=== PATIENT | female | born 1960 | race Caucasian/White ===

== ENCOUNTER 2020-02-12 02:11 | Inpatient (IN) | payer OTHER ==
[2020-02-12] VITALS (7 sets, daily range): BP systolic 156–182; BP diastolic 93–102
[~2020-02-12] VITALS: Ht 157.5 cm; Wt 89.3 kg
--- NOTE | 2020-02-12 02:48 | NUR ---
LEVEL II CODE STROKE ACTIVATED. CT NOTIFIED
--- NOTE | 2020-02-12 03:13 | NUR ---
DR. HENRY ON PHONE WITH PATIENT'S DAUGHTER OBTAINING MORE MEDICAL INFORMATION AND LAST KNOWN WELL.
[2020-02-12 03:29] LABS: ABSOLUTE NEUTROPHILS 4.1 thou/uL (1.4-8.2); BASOPHILS 0.9 % (0.0-2.0); EOSINOPHILS 1.1 % (0.0-3.0); HEMATOCRIT 43.3 % (37.0-47.0); HEMOGLOBIN 14.3 gm/dL (12.0-15.0); LYMPHOCYTES 38.4 % (24.0-44.0); MCH 28.4 pg (26.0-34.0); MCHC 33.1 g/dL (28.0-37.0); PLATELET COUNT 242 thou/uL (150-400); POLYS 53.6 % (36.0-66.0); RBC 5.04 mil/uL (4.20-5.00); RDW 14.2 % (10.5-14.5); WBC 7.7 thou/uL (4.0-11.0)
[2020-02-12 03:33] LABS: ANION GAP 17 mmol/L (7-16); BUN 13 mg/dL (7-18); CHLORIDE 99 mmol/L (98-107); CO2 23 mmol/L (21-32); CREATININE 1.1 mg/dL (0.6-1.0); GLUCOSE 414 mg/dL (74-106); SODIUM 139 mmol/L (136-145)
[2020-02-12 03:35] LABS: POTASSIUM 4.6 mmol/L (3.5-5.1)
[2020-02-12 03:42] LABS: ALBUMIN 4.5 g/dL (3.4-5.0); SGOT 34 U/L (15-37); SGPT 42 U/L (14-59); TOTAL BILIRUBIN 0.8 mg/dL (0.2-1.0); TOTAL PROTEIN 8.1 g/dL (6.4-8.2); TROPONIN-I <0.06 ng/mL (<0.06)
[2020-02-12 03:47] LABS: APTT 17.5 Seconds (24.5-32.8); PROTIME 10.2 Seconds (9.3-11.4)
[2020-02-12 03:54] LABS: LARGE PLATELETS OCCASIONAL
[2020-02-12 03:56] LABS: PLATELET ESTIMATE NORMAL
--- NOTE | 2020-02-12 04:28 | NUR ---
JUST ARRIVED BACK FROM CT. PT HAD A LOT OF AGITATION, VERY DIFICULT TO COMPLETE SCAN. MEDS GIVEN. VS MONITORED AND REMAINED STABLE. PLACED PT ON NC ON RETURN.
[2020-02-12 04:34] LABS: BE(vivo) -3.3 mmol/L (-2 to +3); HCO3 22.2 mmol/L (22.0-26.0); PCO2 VENOUS 41.6 mmHg (41.0-51.0); PO2 VENOUS 59.4 mmHg (35.0-45.0)
[2020-02-12 04:51] LABS: MAGNESIUM 2.2 mg/dL (1.8-2.4)
[2020-02-12 05:09] LABS: URINE BILIRUBIN NEGATIVE (Negative); URINE BLOOD TRACE (Negative); URINE CLARITY CLEAR; URINE COLOR YELLOW; URINE GLUCOSE-RANDOM* 3+ (Negative); URINE KETONES 3+ (Negative); URINE LEUKOCYTES-REFLEX NEGATIVE (Negative); URINE NITRITE-REFLEX NEGATIVE (Negative); URINE PROTEIN (DIPSTICK) NEGATIVE (Negative); URINE UROBILINOGEN 0.2 E.U./dl (0.2-1.0)
--- NOTE | 2020-02-12 08:58 | EKG ---
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 : 1960 Requested By: Herb Rivas Order Number: [id number] MD: Jorge Samuels Measurements Intervals [place] Rate: 111 P: 7 MO: 60 QRS: 58 QRSD: 93 T: 114 QT: 334 QTc: 454 Interpretive Statements Sinus tachycardia Nonspecific T abnormalities, lateral leads Baseline wander in lead(s) V1,V3 No previous ECG available for comparison Electronically Signed On 02-12-2020 8:58:02 DIRECTOR FINANCIAL SERVICES by Jorge Samuels [email or web address] <ELECTRONICALLY SIGNED> By: Jorge Samuels MD, [facility] 02/12/20 0858 08 9 Jorge Samuels MD, FACC /EPI
[2020-02-12 09:16] LABS: ANION GAP 15 mmol/L (7-16); BUN 12 mg/dL (7-18); CALCIUM 9.4 mg/dL (8.5-10.1); CHLORIDE 103 mmol/L (98-107); CO2 24 mmol/L (21-32); CREATININE 1.2 mg/dL (0.6-1.0); GLUCOSE 353 mg/dL (74-106); POTASSIUM 4.1 mmol/L (3.5-5.1); SODIUM 142 mmol/L (136-145)
[2020-02-12 09:25] LABS: ALBUMIN 4.3 g/dL (3.4-5.0); MAGNESIUM 2.1 mg/dL (1.8-2.4); PHOSPHORUS 3.6 mg/dL (2.6-4.7); TROPONIN-I <0.06 ng/mL (<0.06)
--- NOTE | 2020-02-12 13:09 | NUR ---
VASCULAR ACCESS CONSULTED FOR ML. PT VERY RESTLESS, RN ASSISTED PLACEMENT TO HOLD PT'S ARM STRAIGHT. PT'S LABS,MEDS,HX REVIEWED. CAMILLA BRACHIAL WAS WIDELY [id number] WITH USG. 4FR POWER MIDLINE TRIMMED TO 11CM INSERTED TO 0CM WITH BRISK BR. PT TOLERATED WELL. ML RELEASED FORE IMMEDIATE USE PER PROTOCOL TO MONO ACEVEDO
--- NOTE | 2020-02-12 15:44 | NUR ---
PT CARE ASSUMED AT 0700. ASSESSMENTS CHARTED. MEDICATIONS CHARTED. RAC IV. SINUS TACHYCARDIA. PT VERY CONFUSED; NONVERBAL. IV THERAPY PLACED CAMILLA MIDLINE. COVID SWAB SENT TO LAB. PT TRANSFERRED TO 3W; ROOM 353. UNABLE TO PERFORM MEDICATION RECONCILIATION OR ALLERGIES PATIENT AND FAMILY ARE UNABLE TO ANSWER.
[2020-02-12 16:37] LABS: AMP/METHAMP Negative (Negative); BARBITURATES Negative (Negative); BENZODIAZEPINES POSITIVE (Negative); COCAINE Negative (Negative); METHADONE Negative (Negative); OPIATES Negative (Negative); PCP Negative (Negative)
--- NOTE | 2020-02-12 18:13 | NUR ---
PATIENT TRANSFERED FROM AT 1400. AWAKE. RESTLESS, NOT FOLLOW COMMAND. IMPULSIVE. STARTED TIMOTHY WRIST RESTRAINT AT 1440. FAMILY UPDATED. ERWIN INSERTED. WILL KEEP MONITOR.
--- NOTE | 2020-02-12 21:16 | HC ---
[facility] [place] [address] CONSULTATION Name: RANDI KEMP Room #: 353-P ADM IN M.R.#: [id number] Admission: 02/12/20 Attend Phys: Zaria Arnold MD Discharge: Date of : 62 Report #: [id number] THIS REPORT FOR: cc: FAM - Family physician unknown FAM - Family physician unknown Billy Betancourt MD ~ DATE OF SERVICE: 02/12/2020 INFECTIOUS DISEASE CONSULTATION REASON FOR CONSULTATION: I was asked to evaluate concerning fever and encephalopathy. HISTORY OF PRESENT ILLNESS: The patient is a 59-year-old with underlying history of obesity, hypertension, diabetes untreated. History was obtained from previous physicians and Emergency Room notations. Last evening, became confused. Had vision loss in the right eye that was transient. Confusion persisted. Difficulty walking. Therefore, was brought in by her family members to the Emergency Room for further evaluation. She denied any fever, chills or sweats. Once presented to the Emergency Room, she had temperature up to 39.3 degrees. She has been tachycardic. Blood pressure has been high. Remains encephalopathic. She had a CT scan of the head, which showed no structural abnormalities. CT angiogram, the same. She was seen by Neurology with no diagnosis established with referral Internal Medicine for further evaluation. The patient has had no chills or sweats. She has had complaints of body aches. No nausea, vomiting or diarrhea. No cough or sputum production. She is on 2 liters of oxygen per nasal cannula. She has had no rash or ulcerations. No mucositis noted. She has had no travel, sick contacts. No substance abuse noted. REVIEW OF SYSTEMS: A 14-point review of system was negative other than what has been described above. PAST MEDICAL HISTORY: Hypertension and diabetes. FAMILY HISTORY: Heart disease, meningitis. SOCIAL HISTORY: Nonsmoker, minimal alcohol intake. ALLERGIES: None known. MEDICATIONS: As noted on her MAR, now on vancomycin, ceftriaxone, azithromycin, insulin, dexamethasone, enoxaparin, olanzapine. PHYSICAL EXAMINATION: [facility] [address] [place] [address] CONSULTATION Name: VIRIDIANARANDI Room #: 353-[facility] IN M.R.#: [id number] Admission: 02/12/20 Attend Phys: Zaria Arnold MD Discharge: Date of : 62 Report #: [id number] VITAL SIGNS: Temperature was 39.3, heart rate 118, respiratory rate 20, blood pressure 172/93. She is on 2 liters of oxygen per nasal cannula. GENERAL: She was encephalopathic, but would arouse, was disoriented except she did know she was in the hospital. She could give me 1 or 2 word answers and then would drift back off to sleep. She would roll back and forth in the bed. SKIN: With no lesions or rash. No palpable adenopathy. She was obese. HEENT: Eyes were roving without conjunctivitis. Pupils were reactive to light. Mouth without mucositis. NECK: Supple, no thyromegaly. LUNGS: Clear. HEART: Regular, without murmur, gallop or rub. ABDOMEN: Soft, obese, and nontender. No hepatosplenomegaly or mass. GENITORECTAL: Not performed. EXTREMITIES: Without clubbing, cyanosis or edema. NEUROLOGIC: Cranial nerves were intact. She was able to move all of her extremities. Plantar reflexes downgoing. LABORATORY STUDIES: Laboratory reviewed, noting her creatinine of 1.2, blood glucose of 353, lactate of 2.8, alkaline phosphatase 164. Normal liver function tests. Urinalysis with 3+ ketones. Blood cultures are pending. CT of the head unremarkable. Chest x-ray, interstitial infiltrates, bilateral. IMPRESSION: 1. A 59-year-old with fever and altered mental status, concerning for underlying encephalitis as cause. Other consideration would be pneumonia, diabetes and toxic metabolic encephalopathy. CT scan had failed to identify any structural lesion. No gross seizure activity has been noted. 2. Hypertension. 3. Diabetes. RECOMMENDATIONS: We will continue IV antibiotic therapy and antiviral therapy. Screen for COVID-19. Further imaging of the brain with MRI scan as well as a lumbar puncture to assess for bacteria, viral pathogens and yeast. Continue blood glucose control, IV fluids, blood pressure management. Have Neurology followup as necessary. <ELECTRONICALLY SIGNED> By: Billy Betancourt MD 02/12/202115 1533 32 Billy Betancourt MD /nt
[2020-02-13] VITALS (8 sets, daily range): BP systolic 144–195; BP diastolic 67–105
--- NOTE | 2020-02-13 01:26 | NUR ---
PT MAKING POOR PROGRESS TOWARDS GOALS. PT VERY LETHARGIC. OPENS EYES HALF MAST TO VOICED AND NOXIOUS STUMULI SUCH NAIL BED PRESSURE. DOES WITH DRAW FROM PAIN, LEFT HAND WITHDRAWS FASTER THEN RIGHT HAND. UNABLE TO PERFORM BRIEF NIH PT IS TO LETHARGIC TO COOPERATE. PT WAS ABLE TO STATE THAT HER LAST NAME WAS "VIRIDIANA." SHE ALSO WAS ABLE TO SOFTLY STATE "WHERE AM I." REALIITY ORIENTATION GIVEN BUT UNABLE TO ASSESS IF THAT INFORMATION WAS ASSIMILATED.
--- NOTE | 2020-02-13 02:46 | NUR ---
REPORT CALLED TO RICK ACEVEDO. PT WILL TRAVEL BY BED WITH THIS RN TO ROOM 218.
--- NOTE | 2020-02-13 08:44 | NUR ---
0315 RECIEVED FROM 3W PER BED FOR TRANSFER. WILL OPEN EYES AND TRACKS. SHAKES HEAD TO YES NO. IS WIGGLING DOWN IN BED AND THROWING LINENS ON FLOOR. WRIST RESTRAINTS REMAIN IN PLACE. CAN HOLD ALL LIMBS OFF BED BUT THEY DO DRIFT DOWN. 0600 PATIENT BECOMING MORE ALERT AND AWAKE OVER TIME. ASSISTED TO TURN SELF. CONTINUE TO ASSES CLOSELY.
--- NOTE | 2020-02-13 09:51 | 2DMMODE ---
[facility] [address] [address] 2 D/M-MODE ECHOCARDIOGRAM Name: RANDI KEMP Room #: 218-P ADM IN M.R.#: [id number] Admission: 02/12/20 Attend Phys: Zaria Arnold MD Discharge: Date of : 62 Report #: [id number] THIS REPORT FOR: cc: FAM - Family physician unknown FAM - Family physician unknown Austin Blanchard MD ~ APPROVED REPORT Study performed: 02/13/2020 09:13:56 EXAM: Comprehensive 2D, Doppler, and color-flow Echocardiogram Patient Location: Bedside Room #: 218 Status: routine BSA: 1.91 HR: 87 bpm BP: 144/78 mmHg Rhythm: NSR Other Information Study Quality: Adequate/limited patient participation. Indications Stroke. Hx: HTN, DM. Echo Enhancing Agent Indication: Rule out Shunt Agent(s) / Amount(s) Used: Agitated Saline 7 cc 2D Dimensions RVDd: 37.41 mm IVSd: 12.00 (7-11mm) LVOT Diam: 19.00 (18-24mm) LVDd: 42.00 mm PWd: 12.00 (7-11mm) Ascending Ao: 28.00 (22-36mm) LVDs: 29.00 (25-40mm) Aortic Root: 28.90 mm Volumes Left Atrial Volume (Systole) Single Plane 4CH: 34.40 mL Single Plane 2CH: 36.56 mL LA ESV Index: 20.00 mL/m2 [facility] [address] [place] [address] 2 D/M-MODE ECHOCARDIOGRAM Name: RANDI KEMP Room #: 218-P ADM IN M.R.#: [id number] Admission: 02/12/20 Attend Phys: Zaria Arnold, Discharge: Date of : 62 Report #: [id number] Aortic Valve AoV Peak Ced.: 1.41 m/s AO Peak Gr.: 7.99 mmHg LVOT Max P.09 mmHg LVOT Max V: 1.01 m/s YANDY Vmax: 2.10 cm2 Mitral Valve E/A Ratio: 1.4 MV Decel. Time: 144.38 ms MV E Max Ced.: 1.09 m/s MV A Ced.: 0.79 m/s MV PHT: 41.87 ms IVRT: 58.82 ms Pulmonary Valve PV Peak Ced.: 0.97 m/s PV Peak Gr.: 3.79 mmHg Pulmonary Vein P Vein S: 0.66 m/s P Vein A: 0.28 m/s P Vein D: 0.45 m/s P Vein A Dur.: 100.3 msec P Vein S/D Ratio: 1.47 Tricuspid Valve RAP Estimate: 5.00 mmHg Left Ventricle The left ventricle is normal size. There is normal LV segmental wall motion. Mild concentric left ventricular hypertrophy. Left ventricular systolic function is normal. LVEF is 60-65%. Right Ventricle The right ventricle is normal size. The right ventricular systolic function is normal. Atria The left atrium size is normal. No shunting noted with contrast bubble injection. The right atrium size is normal. Aortic Valve The aortic valve is normal in structure. Leaflets are minimally calcified. No aortic regurgitation is present. There is no aortic valvular stenosis. Mitral Valve Mitral valve leaflets are mildly thickened. Trace mitral regurgitation. No evidence of mitral valve stenosis. [facility] [address] [place] [address] 2 D/M-MODE ECHOCARDIOGRAM Name: RANDI KEMP Room #: 218-P ADM IN M.R.#: [id number] Admission: 02/12/20 Attend Phys: Zaria Arnold, Discharge: Date of : 62 Report #: [id number] Tricuspid Valve The tricuspid valve is normal in structure. There is no tricuspid valve regurgitation noted. Unable to assess PA pressure. Pulmonic Valve Pulmonic valve is not well visualized. Trace pulmonic regurgitation. Great Vessels The aortic root is normal in size. The ascending aorta is normal in size. IVC is normal in size and collapses >50% with inspiration. Pericardium There is no pericardial effusion. <Conclusion> The left ventricle is normal size. LVEF is 60-65%. The aortic valve is normal in structure. Leaflets are minimally calcified. Mitral valve leaflets are mildly thickened. Trace mitral regurgitation. The tricuspid valve is normal in structure. There is no tricuspid valve regurgitation noted. Unable to assess PA pressure. Pulmonic valve is not well visualized. There is no pericardial effusion. No shunting noted with contrast bubble injection. <ELECTRONICALLY SIGNED> By: Austin Blanchard MD 02/13/20949 9 9 Austin Blanchard MD /INF
[2020-02-13 12:33] LABS: HEMATOCRIT 37.7 % (37.0-47.0); MCV 87.5 fL (80.0-100.0); RBC 4.31 mil/uL (4.20-5.00); RDW 14.4 % (10.5-14.5); WBC 11.5 thou/uL (4.0-11.0)
[2020-02-13 12:34] LABS: HEMOGLOBIN 12.1 gm/dL (12.0-15.0)
[2020-02-13 12:43] LABS: ALBUMIN 3.4 g/dL (3.4-5.0); CALCIUM 8.3 mg/dL (8.5-10.1); CHOLESTEROL 162 mg/dL (<200); CREATININE 1.1 mg/dL (0.6-1.0); HDL CHOLESTEROL 41 mg/dL (>40); LDL CHOLESTEROL 83 mg/dL (<100); MAGNESIUM 2.1 mg/dL (1.8-2.4); PHOSPHORUS 2.8 mg/dL (2.5-4.9); POTASSIUM 3.8 mmol/L (3.5-5.1); TRIGLYCERIDE 194 mg/dL (<150); VLDL 39 mg/dL (<40)
--- NOTE | 2020-02-13 19:46 | NUR ---
RECEIVED PT'S CARE AROUND 0720; PT. ON BED; RESTING WITH EYES CLOSED; EQUAL CHEST RISING NOTICED; SR ON THE MONITOR; DURING AM ASSESSMENT PT. AOX4; FORGETFUL; NO C/O PAIN; RESTRAINS D/C; AM MEDICATION GIVEN; HOLD LOVENOX DUE TO POSSIBLE PROCEDURE LATER ON THE DAY; NPO; PER [employer] NO ABLE TO PERDOMED LP DUE TO PT. HAD LOVENOX 02/12/20 AT NIGHT; [facility] UND[facility]STAND[facility]; PHYSICIAN NOTIFIED; LOVENOX ON HOLD; NPO AT MIGHT NIGHT; PT. NOTIFIED; [facility]; GONE FOR MRI; ABLE TO WORK WITH PT AND OT; EDUCATED ABOUT FALL PRECAUTIONS; [facility]; ASSESSMENT CHARGED; FOLLOWING POC; PASSED ON REPORT;
[2020-02-13 23:06] LABS: GLYCOHEMOGLOBIN (HGB A1C) 15.2 % (4.8-5.6)
[2020-02-14] VITALS: BP 152/91
[2020-02-14 04:13] VITALS: BP 149/102
[2020-02-14 05:39] LABS: ABSOLUTE NEUTROPHILS 9.3 thou/uL (1.4-8.2); BASOPHILS 0.5 % (0.0-2.0); HEMATOCRIT 39.4 % (37.0-47.0); HEMOGLOBIN 12.6 gm/dL (12.0-15.0); LYMPHOCYTES 22.7 % (24.0-44.0); MCHC 31.8 g/dL (28.0-37.0); MCV 87.9 fL (80.0-100.0); MONOCYTES 5.6 % (1.0-8.0); PLATELET COUNT 204 thou/uL (150-400); POLYS 71.2 % (36.0-66.0); RBC 4.49 mil/uL (4.20-5.00); RDW 14.6 % (10.5-14.5)
--- NOTE | 2020-02-14 06:38 | NUR ---
SLEPT MOST OF SHIFT. TURNS SELF. REMAINS ALERT AND ORIENTED X4 AND SOMETIMES IS FORGETFUL. WORKING ON GOALS AND PLAN OF CARE FOR NOC. DENIES COMPLAINTS. CONTINUE TO ASSES.
[2020-02-14 06:46] VITALS: BP 140/87
--- NOTE | 2020-02-14 07:13 | EKG ---
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 : 1960 Requested By: Herb Rivas Order Number: [id number] MD: Jorge Samuels Measurements Intervals [place] Rate: 94 P: 48 IA: 158 QRS: 6 QRSD: 86 T: -8 QT: 354 QTc: 443 Interpretive Statements Sinus rhythm Probable left atrial enlargement Left ventricular hypertrophy Borderline T abnormalities, inferior leads No previous ECG available for comparison Electronically Signed On 02-14-2020 7:13:34 MAIL DELIVERY SUPERVISOR by Jorge Samuels [email or web address] <ELECTRONICALLY SIGNED> By: Jorge Samuels MD, [facility] 02/14/20 0713 0233 0233 Jorge Samuels MD, FACC /EPI
[2020-02-14 11:42] LABS: CSF CLARITY CLEAR; CSF COLOR COLORLESS; VOLUME 7 ml
[2020-02-14 11:43] LABS: CSF RBC 8 /mm3
[2020-02-14 11:45] LABS: CSF WBC 86 /mm3 (0-10)
[2020-02-14 12:24] LABS: CSF GLUCOSE 167 mg/dL (40-70); CSF PROTEIN 54 mg/dL (15-45)
[2020-02-14 13:41] LABS: CSF LYMPHOCYTES 4 % (40-80)
[2020-02-14 13:42] LABS: CSF EOSINOPHILS 0 %; CSF POLYS 94 %
[2020-02-14 14:23] LABS: ALBUMIN 3.3 g/dL (3.4-5.0); CALCIUM 8.8 mg/dL (8.5-10.1); CREATININE 1.1 mg/dL (0.6-1.0); POTASSIUM 3.7 mmol/L (3.5-5.1); TOTAL BILIRUBIN 0.4 mg/dL (0.2-1.0); TOTAL PROTEIN 6.5 g/dL (6.4-8.2)
--- NOTE | 2020-02-14 15:35 | NUR ---
Patient admits with AMS/hypoglycemia. Patient new diabetic. Patient resides in independent apt with her dtr. She has steps to apt and no difficulty. CORRECTIONAL FACILITY PSYCHIATRIST independent with adls and self care. She cont to drive. She is unemployed. She has no health insurance. She met with [employer] who are in process of medicaid application. Patient to dc home independently. [facility] following.
[2020-02-14 16:06] LABS: HIV ANTIBODY Non Reactive (Non Reactive)
[2020-02-14 16:26] VITALS: BP 133/70
[2020-02-14 20:07] VITALS: BP 177/95
[2020-02-15 04:05] VITALS: BP 174/92
--- NOTE | 2020-02-15 04:10 | NUR ---
Assumed pt care at 1900. Pt is alert and oriented. No sign of distress noted in pt. Pt is laying in bed. Pt is steady upon ambulation. Assessment completed and documented. Scheduled meds administered to pt. Tolerated PO intake. No acute events overnight. Continue to monitor. No complaints at this time. No further needs at this time.
[2020-02-15 05:11] LABS: CALCIUM 8.9 mg/dL (8.5-10.1); CREATININE 0.9 mg/dL (0.6-1.0)
[2020-02-15 05:14] LABS: HEMATOCRIT 43.1 % (37.0-47.0); HEMOGLOBIN 13.8 gm/dL (12.0-15.0); MCHC 32.1 g/dL (28.0-37.0); MCV 87.3 fL (80.0-100.0); RBC 4.93 mil/uL (4.20-5.00); RDW 14.5 % (10.5-14.5)
[2020-02-15 05:51] LABS: POTASSIUM 2.8 mmol/L (3.5-5.1)
[2020-02-15 08:25] VITALS: BP 154/103
[2020-02-15 16:30] VITALS: BP 142/94
--- NOTE | 2020-02-15 16:50 | NUR ---
Patient had an LP today. Cont plan for home with assistance for medications. [facility] on .
[2020-02-15 19:07] LABS: SYPHILIS AB Non Reactive (Non Reactive)
[2020-02-15 19:25] VITALS: BP 130/81
--- NOTE | 2020-02-16 04:01 | NUR ---
SLEPT MOST OF SHIFT. DENIES COMPLAINTS OF PAIN. UP AD NATACHA WITH STEADY GAIT. REMAINS ALERT AND ORIENTED X4. WORKING ON GOALS AND PLAN OF CARE. CONTINUE TO PROGRESS TOWARDS DC GOALS. CONTINUE TO ASSES CLOSELY.
[2020-02-16 04:45] VITALS: BP 128/78
[2020-02-16 04:55] LABS: CALCIUM 8.7 mg/dL (8.5-10.1); CREATININE 1.1 mg/dL (0.6-1.0)
[2020-02-16 05:01] LABS: HEMATOCRIT 43.4 % (37.0-47.0); HEMOGLOBIN 14.1 gm/dL (12.0-15.0); MCH 28.6 pg (26.0-34.0); MCHC 32.5 g/dL (28.0-37.0); MCV 88.1 fL (80.0-100.0); RBC 4.92 mil/uL (4.20-5.00); RDW 14.5 % (10.5-14.5); WBC 9.9 thou/uL (4.0-11.0)
[2020-02-16 07:37] VITALS: BP 144/79
[2020-02-16] MEDS ORDERED: NORVASC10 MG PO ×3 (11:43→14:00)
[2020-02-16] MEDS ORDERED: TRADJENTA5 MG PO ×3 (11:43→14:00)
[2020-02-16] MEDS ORDERED: GLUCOPHAGE500 MG PO ×3 (11:43→14:00)
[2020-02-16] MEDS ORDERED: FREESTYLE LITE1 EAC1 MISCELL ×3 (11:44→14:00)
[2020-02-16] MEDS ORDERED: FREESTYLE LITE1 EACH MISCELL ×3 (11:45→14:00)
[2020-02-16] MEDS ORDERED: FREESTYLE LANC1 EACH MISCELL ×3 (11:45→14:00)
[2020-02-16 12:01] VITALS: BP 127/94
[2020-02-16 15:08] LABS: CSF VDRL Non Reactive (Non Rea:<1:1)
--- NOTE | 2020-02-16 15:57 | NUR ---
Vouched for patients medications except trijenta. Dr Chamberlain to write a script for small amount and patient to pickling solution maker in [facility] pharmacy on Thursday when they can obtain in stock. patients vouched medication is with tank charger.
[2020-02-16 17:05] VITALS: BP 148/91
--- NOTE | 2020-02-16 18:16 | NUR ---
PROGRESSING TOWARDS GOALS, HR 100-120/ ON THE MONITOR DR RAO NOTIFIED, NEW ORDERS RECIEVED AND PATIENT MEDICATED INDICATED. WILL CONTINUE WITH POC.
[2020-02-16 20:00] VITALS: BP 154/88
[2020-02-17 03:54] LABS: HEMATOCRIT 41.7 % (37.0-47.0); HEMOGLOBIN 13.4 gm/dL (12.0-15.0); MCH 28.5 pg (26.0-34.0); MCHC 32.1 g/dL (28.0-37.0); MCV 88.7 fL (80.0-100.0); RBC 4.7 mil/uL (4.20-5.00); RDW 14.6 % (10.5-14.5); WBC 8.3 thou/uL (4.0-11.0)
[2020-02-17 04:00] VITALS: BP 153/99
[2020-02-17 04:00] LABS: CALCIUM 9.3 mg/dL (8.5-10.1); POTASSIUM 3.1 mmol/L (3.5-5.1)
[2020-02-17 05:07] LABS: HSV 1 DNA Negative (Negative); HSV 2 DNA Negative (Negative)
[2020-02-17 08:00] VITALS: BP 139/83
--- NOTE | 2020-02-17 08:35 | NUR ---
ASSESSMENTS CHARTED, MEDS CHARTED GIVEN. PT RIGHT FOREARM IV INFILTRATED, NEW IV WAS PLACED IN LEFT WRIST. ALERT AND ORIENTED. UP AT NATACHA TO THE BATHROOM. SKIN INTACT. FALL PRECAUTIONS IN PLACE DURING SHIFT. DENIED PAIN. STILL WAITING ON RESULTS OF SPINAL TAP. MULTIPLE ANTIBIOTICS GIVEN THROUGH THE NIGHT.
[2020-02-17 12:30] VITALS: BP 137/90
[2020-02-17 16:00] VITALS: BP 155/98
--- NOTE | 2020-02-17 17:58 | NUR ---
NEW IV OBTAINED PER IV TEAM AFTER MULTIPLE ATTEMPTS TODAY. RFA AREA, ALL ANITBIOTCS RESTARTED. SHE ATE 100% OF HER DINNER AND SEEMS TO HVE HER APPETITE BACK NOW. I WILL PASS ONTO THE PAYROLL MASTER TO KEEP HER KVO FLUIDS TO NOT LOSE HER IV LINE PER MD ORDER AND PLACE A NOTE IN THE NURSING AREA OF CARE PLAN WELL.
--- NOTE | 2020-02-17 19:18 | NUR ---
18:00 HER BRAND NEW IV PER IV TEAM HAS INFILTRATED AT THIS TIME, 15 MINUTES INTO HER INFUSION. HAS HAD 5 IV'S BLOW THUS FAR SO WILL PROBABLY REQUIRE A CENTRAL OR PICC LINE MOVING FORWARD THIS ROUTE IS NOT WORKING FOR HER. DENIES ANY PAIN, NO CHILLS.
[2020-02-17 20:00] VITALS: BP 139/93
[2020-02-18 05:00] VITALS: BP 148/67
--- NOTE | 2020-02-18 06:50 | NUR ---
ASSESSMENTS CHARTED, MEDS CHARTED GIVEN. PATIENT RECEIVED IV MEDS AFTER GETTING A NEW LEFT EJ. PATIENT RESTING IN BED DURING SHIFT. FALL PRECAUTIONS IN PLACE DURING SHIFT.
[2020-02-18 07:00] VITALS: BP 136/80
[2020-02-18] MEDS ORDERED: METOPROLOL TART25 MG PO (10:50)
[2020-02-18] MEDS ORDERED: TRADJENTA5 MG PO (10:50)
[2020-02-18 11:34] VITALS: BP 136/80
--- NOTE | 2020-02-18 12:40 | NUR ---
ASSESSMENT CHARTED - MEDS PER APR - DIET AND FLUIDS. NO CO'S OF PAIN OR NASUEA. UP AD NATACHA IN ROOM. PT HOME TODAY. INSTRUCTION RE HOME MEDS/ CARE AND FOLLOW UP GIVEN TO PATIENT - STATED UNDERSTANDING OF INSTRUCTION GIVEN. PT GIVEN INSTRUCTION RE DIET IN THE FORM OF HANDOUTS OBTAINED FROM THE [facility]. PT TO OBTAIN PRESCRIPTIONS FROM THE PHARMACY AT THE HOSPITAL ON THURSDAY. STATED UNDERSTANDING THAT SHE NEEDED TO RETURN TO OBTAIN THESE. PT REFUSED FLU SHOT THIS AM . PT LEFT UNIT AMBULATORY REQUESTED - HOME VIA PVT VEHICLE ACCOMPANIED BY DAUGHTER. NO CO'S AT TIME OF D/C.
== END 2020-02-18 12:20 | disposition home or self-care (01) | DRG 871 ==
LOC: ER 02:11 → EROBS 05:52 → 2N 06:38 → 3W 13:22 → 2N 02-13 03:08
PROVIDERS: Emergency Medicine; Hospitalist; Nurse Practitioner Family; Specialist; ADMIT Internal Medicine; ATTEND Internal Medicine
PROC: B01B1ZZ Fluoroscopy of Spinal Cord using Low Osmolar Contrast (ICD-10-PCS; principal; 2020-02-12)
PROC: 05HA33Z Insertion of Infusion Device into Left Brachial Vein, Percutaneous Approach (ICD-10-PCS; principal; 2020-02-12)
PROC: 009U3ZX Drainage of Spinal Canal, Percutaneous Approach, Diagnostic (ICD-10-PCS; principal; 2020-02-12)
DX: A41.9 Sepsis, unspecified organism (principal); G92 Toxic encephalopathy; G04.90 Encephalitis and encephalomyelitis, unspecified; E87.2 Acidosis; Z20.828 Contact with and (suspected) exposure to other viral communicable diseases; I10 Essential (primary) hypertension; E11.65 Type 2 diabetes mellitus with hyperglycemia; Z82.49 Family history of ischemic heart disease and other diseases of the circulatory system; Z79.899 Other long term (current) drug therapy
CPT/HCPCS: 10081; 10879; 27000